=== PATIENT | male | born 1955 ===

== ENCOUNTER 2017-03-01 15:01 | Emergency (ER) | payer BC, MEDICAID ==
[2017-03-01 15:10] VITALS: O2SAT 99
[2017-03-01] MEDS ORDERED: Sodium Chloride 0.9% 1,000 ML IV ONE (15:31)
[2017-03-01 15:47] LABS: BASO # 0.1 K/uL (0.0-0.2); BASO % 1.1 % (0.0-2.0); EOS # 0.3 K/uL (0.0-0.7); EOS % 2.9 % (0.0-4.0); HEMATOCRIT 36.3 % (35.0-51.0); LYMPH # 3.7 K/uL (1.0-4.3); LYMPH % 41.5 % (20.0-40.0); MEAN CELL VOLUME 67.2 fL (80.0-94.0); MEAN CORPUSCULAR HEMOGLOBIN 21.2 pg (27.0-31.0); MEAN CORPUSCULAR HGB CONC 31.5 g/dL (33.0-37.0); MEAN PLATELET VOLUME 9.9 fL (7.2-11.7); MONO # 0.6 K/uL (0.0-0.8); MONO % 6.6 % (0.0-10.0); PLATELET COUNT 253 K/uL (130-400); RED CELL DISTRIBUTION WIDTH 15.9 % (11.5-14.5)
--- NOTE | 2017-03-01 15:47 | C.PDOC ---
History Of Present Illness 61 year old male, with a history of Pituitary adenoma with surgeries performed in 2004 and 2013, presents to the ED with complaints of double vision when using both eyes beginning yesterday. He notes monocular vision when using one eye. Patient reports he has yearly MRIs to follow for potential growth and sees his neurologist regularly. He states he is asymptomatic following the surgeries and had an MRI performed on 01/28/17 but does not have the report, only the disc. Patient has an appointment with neurosurgeon Dr. Schwab at [facility] scheduled for March 17. He denies ataxia, headache, slurred speech, coordination deficits, difficulty swallowing, chest pain, or palpitations. Time Seen by Provider: 03/01/17 15:12 Chief Complaint (Nursing): Eye Problem History Per: Patient History/Exam Limitations: no limitations Onset/Duration Of Symptoms: Hrs Current Symptoms Are (Timing): Still Present Injury To Eye?: No Wears Contact Lens?: No Recent travel outside of the [place]: No Past Medical History Reviewed: Historical Data, Nursing Documentation, Vital Signs Vital Signs: Last Vital Signs Temp 97.7 F 03/01/17 15:09 Pulse 98 H 03/01/17 15:09 Resp 20 03/01/17 15:09 BP 162/89 H 03/01/17 15:09 Pulse Ox 99 03/01/17 16:24 - Medical History PMH: Arthritis, HTN, Hypothyroidism Family History: States: Unknown Family Hx - Social History Hx Alcohol Use: No Hx Substance Use: No - Immunization History Hx Influenza Vaccination: Yes Hx Pneumococcal Vaccination: Yes Review Of Systems Constitutional: Negative for: Fever, Chills Eyes: Positive for: Vision Change (double vision ) Cardiovascular: Negative for: Chest Pain, Palpitations Respiratory: Negative for: Shortness of Breath Neurological: Negative for: Weakness, Numbness, Change in Speech, Altered Mental Status, Headache, Dizziness Physical Exam - Physical Exam Appears: Non-toxic, No Acute Distress Skin: Warm, Dry Head: Atraumatic, Normacephalic Eye(s): bilateral: Normal Inspection, PERRL, EOMI Oral Mucosa: Moist Neck: Supple Chest: Symmetrical, No Deformity Cardiovascular: Rhythm Regular, No Murmur Respiratory: No Rales, No Rhonchi, No Wheezing, Other (clear to auscultation ) Gastrointestinal/Abdominal: Soft, No Tenderness, No Distention, No Guarding, No Rebound Extremity: Normal ROM, No Tenderness, No Calf Tenderness, Capillary Refill ( good capillary refill, less than two seconds ), No Deformity, No Swelling Neurological/Psych: Oriented x3, Normal Speech, Normal Cognition, Normal Cranial Nerves, No Cerebellar Signs, Normal Motor, Normal Sensation Gait: Steady ED Course And Treatment - Laboratory Results Result Diagrams: 03/01/17 15:40 03/01/17 15:40 Lab Interpretation: No Acute Changes O2 Sat by Pulse Oximetry: 99 (RA) Pulse Ox Interpretation: Normal Progress Note: Blood work was ordered and patient was given fluids. - Physician Consult Information Time Consulting Physician Contacted: 16:26 Outcome Of Conversation: Case discussed with Dr Schwab. He knows the patient well and they have all his prior records. He suggests we discharge patient and have him go directly to the ED at [facility]. Disposition Counseled Patient/Family Regarding: Studies Performed, Diagnosis, Need For Followup - Disposition Disposition: HOME/ ROUTINE Disposition Time: 16:29 Condition: STABLE Additional Instructions: Please go directly to the ED at [facility] as per Dr Schwab. Instructions: Pituitary Adenoma (ED), Diplopia (ED) Forms: [employer] (Korean) - Clinical Impression Clinical Impression: Diplopia, Pituitary adenoma - Scribe Statement The provider has reviewed the documentation as recorded by the Scribrusty Haynes All medical record entries made by the Scribe were at my direction and personally dictated by me. I have reviewed the chart and agree that the record accurately reflects my personal performance of the history, physical exam, medical decision making, and the department course for this patient. I have also personally directed, reviewed, and agree with the discharge instructions and disposition.
[2017-03-01 15:56] LABS: CHLORIDE 98 mmol/L (98-107); POTASSIUM 4.8 mmol/L (3.6-5.2); SODIUM 134 mmol/L (132-148)
[2017-03-01 15:58] LABS: ALB/GLOB RATIO 1.4 (1.0-2.1); AST/SGOT 55 U/L (17-59); BILIRUBIN,TOTAL 0.5 mg/dL (0.2-1.3); CARBON DIOXIDE 23 mmol/L (22-30); GFR AFRICAN-AMERICAN > 60
[2017-03-01 15:59] LABS: ALKALINE PHOSPHATASE 109 U/L (38-126); ALT/SGPT 73 U/L (21-72); BLOOD UREA NITROGEN 13 mg/dL (9-20); CALCIUM 9.5 mg/dl (8.6-10.4); GLUCOSE,RANDOM 220 mg/dL (75-110)
[2017-03-01 16:45] VITALS: BP 167/88; PULSE 90; RESP 18; TEMP 98.3
== END 2017-03-01 16:49 | disposition home or self-care (01) ==
LOC: C.ER 15:01
DX: H53.2 Diplopia (principal); D35.2 Benign neoplasm of pituitary gland